=== PATIENT | female | born 1970 | race Caucasian/White ===

== ENCOUNTER → 2019-05-17 | Outpatient (CLI) | payer OTHER | END | disposition home or self-care (01) | LOC: MAMMO 09:09 | PROVIDERS: ATTEND Nurse Practitioner Family | DX: Z12.31 Encounter for screening mammogram for malignant neoplasm of breast (principal) | CPT/HCPCS: 77067 ==

== ENCOUNTER → 2020-09-07 | Outpatient (CLI) | payer OTHER ==
--- NOTE | 2020-09-07 13:57 | RAD ---
EXAM: Chest, 2 views. HISTORY: Hypoxia. COMPARISON: None. FINDINGS: 2 views of the chest are obtained. There is no infiltrate, pleural effusion or pneumothorax . The heart is normal in size. IMPRESSION: No acute pulmonary finding. Electronically signed by: Trish Eng MD (09/07/2020 1:54 PM) [id number]
--- NOTE | 2020-09-07 15:07 | RAD ---
EXAM: Bilateral diagnostic mammogram; left breast sonogram. HISTORY: 50-year-old female presents for evaluation of asymmetry within the left breast demonstrated on a mammogram dated 05/17/2019. The patient did not return for additional imaging at the time of the p rior exam and is now due for bilateral mammography. TECHNIQUE: Full-field digital craniocaudal and mediolateral oblique views of both breasts are obtaine d for evaluation. Computer aided detection was applied. Sonographic imaging of the left breast was al so performed. COMPARISON: 05/17/2019 BREAST PARENCHYMAL DENSITY: Level B - Scattered fibroglandular densities. FINDINGS: There is no new suspicious mass, microcalcification or region of architectural distortion. There is a stable small circumscribed nodule within the 8:00 subareolar aspect of the left breast. Sonographic imaging of the left breast demonstrates a small cyst at the 8:00 subareolar location tammy uring 5 mm. This corresponds with the nodule described mammographically. There is a left axillary lym ph node with slightly prominent cortex. This maintains a benign fatty hilum and is likely reactive or physiologic. IMPRESSION: BI-RADS Category 2: Benign finding(s). RECOMMENDATION: Annual mammography is recommended. If your mammogram demonstrates that you have dense breast tissue, which could hide abnormalities, and if you have other risk factors for breast cancer that have been identified, you might benefit from s upplemental screening tests that may be suggested by your ordering physician. Dense breast tissue, i n and of itself, is a relatively common condition. This information is not provided to cause undue c oncern, but rather to raise your awareness and to promote discussion with your physician regarding th e presence of other risk factors, in addition to dense breast tissue. A report of your mammography re sults will be sent to you and your physician. You should contact your physician if you have any ques tions or concerns regarding this report. Mammography is a sensitive method for finding small breast cancers, but it does not detect them all a nd is not a substitute for careful clinical examination. A negative mammogram does not negate a clin ically suspicious finding and should not result in delay in biopsying a clinically suspicious abnorma lity. PQRS compliance statement - Patient information was entered into a reminder system with a target due date for the next mammogram. "Our facility is accredited by the [employer] Mammography [employer]." Electronically signed by: Trish Eng MD (09/07/2020 3:05 PM) [id number]
--- NOTE | 2020-09-13 13:50 | RAD ---
EXAM: Bilateral diagnostic mammogram; left breast sonogram. HISTORY: 50-year-old female presents for evaluation of asymmetry within the left breast demonstrated on a mammogram dated 05/17/2019. The patient did not return for additional imaging at the time of the prior exam and is now due for bilateral mammography. TECHNIQUE: Full-field digital craniocaudal and mediolateral oblique views of both breasts are obtained for evaluation. Computer aided detection was applied. Sonographic imaging of the left breast was also performed. COMPARISON: 05/17/2019 BREAST PARENCHYMAL DENSITY: Level B - Scattered fibroglandular densities. FINDINGS: There is no new suspicious mass, microcalcification or region of architectural distortion. There is a stable small circumscribed nodule within the 8:00 subareolar aspect of the left breast. Sonographic imaging of the left breast demonstrates a small cyst at the 8:00 subareolar location measuring 5 mm. This corresponds with the nodule described mammographically. There is a left axillary lymph node with slightly prominent cortex. This maintains a benign fatty hilum and is likely reactive or physiologic. IMPRESSION: BI-RADS Category 2: Benign finding(s). RECOMMENDATION: Annual mammography is recommended. If your mammogram demonstrates that you have dense breast tissue, which could hide abnormalities, and if you have other risk factors for breast cancer that have been identified, you might benefit from supplemental screening tests that may be suggested by your ordering physician. Dense breast tissue, in and of itself, is a relatively common condition. This information is not provided to cause undue concern, but rather to raise your awareness and to promote discussion with your physician regarding the presence of other risk factors, in addition to dense breast tissue. A report of your mammography results will be sent to you and your physician. You should contact your physician if you have any questions or concerns regarding this report. Mammography is a sensitive method for finding small breast cancers, but it does not detect them all and is not a substitute for careful clinical examination. A negative mammogram does not negate a clinically suspicious finding and should not result in delay in biopsying a clinically suspicious abnormality. PQRS compliance statement - Patient information was entered into a reminder system with a target due date for the next mammogram. "Our facility is accredited by the [employer]amm[employer]." [email or web address]
== END ==
LOC: MAMMO 13:22
PROVIDERS: ATTEND Nurse Practitioner Family
DX: N60.02 Solitary cyst of left breast (principal); N63.24 Unspecified lump in the left breast, lower inner quadrant; R92.8 Other abnormal and inconclusive findings on diagnostic imaging of breast; R09.02 Hypoxemia; Z72.0 Tobacco use
CPT/HCPCS: 71046; 76641; 77066